=== PATIENT | male | born 1970 | race Hispanic/Latino ===

== ENCOUNTER 2017-12-05 21:20 | Emergency (ER) | payer BC ==
--- NOTE | 2017-12-05 22:24 | Emergency Department Report ---
HPI - General Chief Complaint: Skin/Abscess/Foreign Body Time Seen by Provider: 12/05/17 22:11 - HPI HPI: 46-year-old male presents to the emergency department with the complaint of impacted steak bolus that started around 8 PM. The patient says that he has felt like food has gotten stuck before but usually able past. Currently he is unable to keep down even water. He otherwise just has a childhood history of asthma. He has not taken anything for his symptoms prior to presentation. ED Past Medical Hx - Past Medical History Hx Asthma: Yes - Surgical History Past Surgical History?: No - Social History Smoking Status: Never Smoker Substance Use Type: Alcohol - Medications Home Medications: Home Medications Medication Instructions Recorded Confirmed Last Taken Type Omeprazole 20 mg PO QDAY #20 tablet. 12/06/17 Unknown Rx ED Review of Systems ROS: Stated complaint: FOOD IN THROAT Other details as noted in HPI Comment: All other systems reviewed and negative Constitutional: denies: chills, fever Eyes: denies: eye pain, eye discharge, vision change ENT: throat pain. denies: ear pain Respiratory: denies: cough, shortness of breath, wheezing Cardiovascular: denies: chest pain, palpitations Gastrointestinal: denies: abdominal pain, nausea, diarrhea Genitourinary: denies: urgency, dysuria Musculoskeletal: denies: back pain, joint swelling, arthralgia Skin: denies: rash, lesions Neurological: denies: headache, weakness, paresthesias Physical Exam - Physical Exam Vital Signs: Vital Signs 12/05/17 21:55 Temperature 98.5 F Pulse Rate 84 Respiratory 16 Rate Blood Pressure 154/110 O2 Sat by Pulse 97 Oximetry Physical Exam: GENERAL: The patient is well-developed well-nourished. HENT: Normocephalic. Atraumatic. Patient has moist mucous membranes. Oropharynx is clear. EYES: Extraocular motions are intact. Pupils equal reactive to light bilaterally. NECK: Supple. Trachea is midline. CHEST/LUNGS: Clear to auscultation. There is no respiratory distress noted. HEART/CARDIOVASCULAR: Regular. There is no tachycardia. There is no murmur. ABDOMEN: Abdomen is soft, nontender. Patient has normal bowel sounds. There is no abdominal distention. SKIN: Skin is warm and dry. NEURO: The patient is awake, alert, and oriented. The patient is cooperative. The patient has no focal neurologic deficits. The patient has normal speech. MUSCULOSKELETAL: There is no tenderness or deformity. There is no limitation range of motion. There is no evidence of acute injury. ED Course Vital Signs 12/05/17 21:55 Temperature 98.5 F Pulse Rate 84 Respiratory 16 Rate Blood Pressure 154/110 O2 Sat by Pulse 97 Oximetry - Consultations Consultation #1: I spoke with Dr. Rosas, gastroenterology, who will come in and see the patient for probable EGD for food bolus disimpaction. 12/05/17 22:59 ED Medical Decision Making - Medical Decision Making Attempted to have the patient swallow some water but he was unable to keep even water down and it caused him discomfort. This appears consistent with a food bolus impaction. He was given some glucagon without much relief. Gastroenterology came in and did a bedside EGD and it showed esophagitis and some esophageal stricture but the fluid bolus appeared to go down with air insufflation. He is safe to go home and will go home on a PPI and a referral for gastroenterology. Vital signs stable. - Differential Diagnosis esophagitis, dysphagia, food bolus, malignancy Critical Care Time: No Critical care attestation.: If time is entered above; I have spent that time in minutes in the direct care of this critically ill patient, excluding procedure time. ED Disposition Clinical Impression: Esophagitis Food impaction of esophagus Qualifiers: Encounter type: initial encounter Qualified Code(s): T18.128A - Food in esophagus causing other injury, initial encounter Hypertension Qualifiers: Hypertension type: essential hypertension Qualified Code(s): I10 - Essential ( primary) hypertension Disposition: -01 TO HOME OR SELFCARE Is pt being admited?: No Condition: Stable Instructions: Hypertension (ED), Food Impaction (ED) Additional Instructions: Please follow-up with your primary care physician in the next few days. I have given you a referral for the greige goods inspector you saw, Dr. Rosas, to follow up regarding your esophagitis and your history of food bolus impactions. Return to the emergency Department with any worsening of your symptoms or any acute distress. Prescriptions: Omeprazole 20 mg PO QDAY #20 tablet.dr Referrals: SUBHA ROSAS MD [Staff Physician] - 3-5 Days Time of Disposition: 00:58
[2017-12-05] MEDS ORDERED: GLUCAGEN IV ONE (22:49)
[2017-12-05] MEDS ORDERED: WATER FOR IRRIG STERILE IR ONE (23:20)
[2017-12-05] MEDS ORDERED: NACL 0.9% 1000 ML 0 ML ONE (23:39)
--- NOTE | 2017-12-05 23:40 | Gastroenterology Consultation ---
History of Present Illness - Reason for Consult Consult date: 12/05/17 food bolus Requesting physician: JESSICA LONDONO - History of Present Illness Mr Gary is a 46 yo wm with h/o asthma who presents with food impaction. He was eating steak around 8-830pm this evening. After a couple bites, he felt piece of steak becoming stuck in his chest. He tried to drink water multiple times afterwards but was unable to keep anything down. The symptoms have persisted since presenting to the ED. Able to keep some secretions down now. No cp/sob. Rare intermittent episodes of solid food dysphagia that resolved in the past. Rare reflux symptoms. Past History Past Medical History: other (asthma) Past Surgical History: No surgical history Social history: no significant social history Family history: no significant family history Medications and Allergies Allergies Allergy/AdvReac Type Severity Reaction Status Date / Time azithromycin Allergy Anaphylaxis Verified 12/05/17 21:54 Penicillins Allergy Anaphylaxis Verified 12/05/17 21:54 Review of Systems - Review of Systems All systems: negative (per HPI) Exam - Constitutional Vital Signs: Temp Pulse Resp BP Pulse Ox 98.5 F 84 16 154/110 97 12/05/17 21:55 12/05/17 21:55 12/05/17 21:55 12/05/17 21:55 12/05/17 21:55 General appearance: no acute distress - Respiratory Respiratory effort: normal Respiratory: bilateral: CTA - Cardiovascular Rhythm: regular Heart Sounds: Present: S1 & S2 Extremities: No edema - Gastrointestinal General gastrointestinal: Present: soft, non-tender, non-distended, normal bowel sounds - Integumentary Integumentary: Present: clear, warm - Neurologic Neurological: alert and oriented x3 - Psychiatric Psychiatric: appropriate mood/affect Assessment and Plan Food impaction - EGD at bedside. Further recommendations following procedure.
[2017-12-05] MEDS ORDERED: NACL 0.9% 1000 ML 1,000 ML ONE (23:48)
[2017-12-06] MEDS ORDERED: DIPRIVAN 10 MG/ML IV ONE (00:10)
--- NOTE | 2017-12-06 00:43 | Post Operative Note ---
Pre-op diagnosis: food impaction Post-op diagnosis: same Findings: EGD: severe esophagitis with peptic stricture which food was impacted. Sponatenously passed into stomach with air insufflation. There was a moderate-large amount of retained food in the stomach. No gastric outlet obstruction. Procedure: EGD with food bolus removal Anesthesia: MAC Surgeon: SUBHA ROSAS Estimated blood loss: none Pathology: none Condition: stable Disposition: same day
--- NOTE | 2017-12-06 00:50 | Anesthesia Consultation ---
Anesthesia Consult and Med Hx Date of service: 12/06/17 - Airway Anesthetic Teeth Evaluation: Good ROM Head & Neck: Adequate Mental/Hyoid Distance: Adequate Mallampati Class: Class II Intubation Access Assessment: Probably Good - Pulmonary Exam CTA: Yes - Cardiac Exam Cardiac Exam: RRR - Pre-Operative Health Status ASA Pre-Surgery Classification: ASA2, Emergency Proposed Anesthetic Plan: MAC - Pulmonary Hx Asthma: Yes - Other Systems Hx Obesity: Yes
--- NOTE | 2017-12-06 00:50 | Anesthesia Day of Surgery ---
Anesthesia Day of Surgery - Day of Surgery Patient Examined: Yes Patient H&P Reviewed: Yes Patient is NPO: No
--- NOTE | 2017-12-06 00:51 | Operative Report ---
Operative Report Operative Report: ESOPHAGOGASTRODUODENOSCOPY with Food Bolus Removal Date of procedure: 12/06/17 Endoscopist: Real Colindres Pre-op diagnosis: food impaction Post-op diagnosis: same, esophagitis/peptic stricture Anesthesia: MAC Complications: No immediate complications Estimated blood loss: minimal Procedure: After consent was obtained, the patient was placed in the left lateral decubitus position. The fujinon endoscope was inserted into the patients mouth under direct vision, and advanced to the 2nd portion of duodenum. The patient tolerated the procedure well. The views of the mucosa were fair. The patient tolerated the procedure well. The patient's vital signs were monitored continuously throughout the procedure. Findings: There was a food impaction in the lower third of the esophagus. The bolus spontaneously passed into the stomach with air sufflation and gentle advancement of the endoscope. There was severe underlying esophagitis in the lower third of the esophagus which included a suspected peptic stricture. There was erythema at an area where the food was impacted. The narrowing was of mild degree, and the endoscope was advanced into the stomach without difficulty. There was a moderate amount of retained food in the stomach limiting detailed views. The duodenum appeared normal. Impression: 1. Food bolus s/p disimpaction 2. Severe esophagitis 3. Peptic stricture Recommendations: -PPI po BID dosing x 1 month, then daily -clear liquid diet tomorrow, advance to softs the following day as tolerated. would not advance to full solids for time being. -f/u in GI clinic in 2 weeks -repeat EGD in 4 weeks to evaluate for esophagitis healing and for dilatation Okay to be discharged from ED. Following in GI clinic in 2 weeks.
--- NOTE | 2017-12-06 00:51 | Post Anesthesia Evaluation ---
- Post Anesthesia Evaluation Patient Participated: Yes Airway Patent: Yes Stable Respiratory Function: Yes Nausea/Vomiting: No Temp > 96.8F: Yes Pain Manageable: Yes Adequeate Hydration: Yes Anesthesia Complications: No Block Receding Appropriately: Not Applicable Patient on Ventilator: No
[2017-12-06 01:27] VITALS: BP 135/92
== END 2017-12-06 01:31 | disposition home or self-care (01) ==
LOC: ED 21:20
DX: T18.128A Food in esophagus causing other injury, initial encounter (principal); I10 Essential (primary) hypertension; K20.9 Esophagitis, unspecified
CPT/HCPCS: 43247; 96374; 99282; J1610; J2704; J7030